=== PATIENT | female | born 1990 | race Caucasian/White ===

== ENCOUNTER 2020-03-24 11:27 | Inpatient (IN) | payer BC, SELFPAY ==
[2020-03-24] VITALS (41 sets, daily range): BP systolic 104–157; BP diastolic 47–96; PULSE 66–120; RESP 18–20; TEMP 36.3–37.3; O2SAT 100; BMI 24.5
[2020-03-24 12:17] LABS: Basophils Absolute Auto 0.1 K/mm3 (0.0-0.1); Basophils Percent Auto 0.4 % (0.2-1.2); Eosinophils Absolute Auto 0.2 K/mm3 (0-0.3); Eosinophils Percent Auto 1.3 % (0-4.4); Hematocrit 29.7 % (37.0-47.0); Hemoglobin 10.1 g/dL (12.0-15.0); Immature Granulocyte Absolute 0.24 K/mm3 (0.00-0.031); Immature Granulocyte Percent A 1.8 % (0-0.5); Lymphocytes Absolute Auto 2.21 K/mm3 (0.9-3.2); Lymphocytes Percent Auto 16.5 % (18.3-44.2); Mean Corpuscular Hemoglobin 30.3 pg (26-34); Mean Corpuscular Volume 89.2 fl (80-100); Mean Platelet Volume 11.1 fl (7.4-10.4); Monocytes Absolute Auto 0.7 K/mm3 (0.1-0.6); Monocytes Percent Auto 5.2 % (2.6-8.5); Neutrophils Percent Auto 74.8 % (45.5-73.1); Platelet Count Result 318 k/mm3 (150-375); Red Blood Count 3.33 M/mm3 (4.2-5.4); Red Cell Distribution Width 13.3 % (11.5-14.5); White Blood Count 13.4 K/mm3 (4.5-10.0)
[2020-03-24] MEDS: LACTATED RINGERS 1,000 ML 125 ML IV CONT (12:22)
--- NOTE | 2020-03-24 12:52 | LDADM ---
This patient, Naomy Ramirez, was admitted to Labor/Delivery/Recovery 104 on 03/24/20 at 11:27. Plans for labor, pain management and were discussed with patient. Patient/family oriented to hospital policies and general routines including ID bracelet, bed and alarms, visiting hours, pain management, procedures, bathroom and other care routines, personal items, smoking policy, room service/diet and guest tray routines, security routines, and visiting hours. Patient/Family are encouraged to report perceived risks to care and to ask questions if they do not understand what they are told or what they should do. See OBIX for further documentation.
[2020-03-24] MEDS: OXYTOCIN 30 UNITS/NS 500 ML 30 UNITS/500 ML BAG IV CONT (13:25)
--- NOTE | 2020-03-24 18:12 | PM.OBPNVD ---
OB - PN: Subj Subjective Date/time seen: 03/24/20 18:12 Very controlled with contractions. AROM forebag- clear. 7/100/0. FHT category 1. Anticipate . OB - PN: Obj Data Labs CBC & Chem 7: 03/24/20 12:12 Labs: Laboratory Results - last 24 hr 03/24/20 03/24/20 12:12 12:12 WBC 13.4 H RBC 3.33 L Hgb 10.1 L Hct 29.7 L MCV 89.2 MCH 30.3 MCHC 34.0 RDW 13.3 Plt Count 318 MPV 11.1 H Immature Gran % (Auto) 1.8 H Neut % (Auto) 74.8 H Lymph % (Auto) 16.5 L [place] % (Auto) 5.2 Eos % (Auto) 1.3 Baso % (Auto) 0.4 Lymph # (Auto) 2.21 [place] # (Auto) 0.7 H Eos # (Auto) 0.2 Baso # (Auto) 0.1 Abs Immat Gran (auto) 0.24 H Absolute Neuts (auto) 10.0 H Absolute Nucleated RBC 0.0 Nucleated RBC % 0.0 Blood Type O Positive Antibody Screen Negative OB - PN A/P Time Spent With Patient Time: Total time spent is greater than 50% in coordination of care (as documented) at patient's floor/unit and/or counseling patient:
--- NOTE | 2020-03-24 19:33 | P.PCNOB_ITS ---
OB - Delivery Note Procedure Delivery date: 03/24/20 Procedure: Intrapartal events: None Induction method: per pitocin protocol Delivery monitor: external FHT and external uterine Route of delivery: Episiotomy description: None Laceration Description: Perineal - 2nd Degree Delivery repair: vicryl Specimen: No Quantitative Blood Loss: 400 Anesthesia type: None Disposition: floor Narrative: With adequate expulsive efforts by the mother, the baby's head was delivered OA. The baby's anterior shoulder was delivered under the pubic symphysis without difficulty. The posterior shoulder and the rest of the baby delivered without difficulty. The infant was placed on the mothers chest and suctioned and stimulated. The cord was clamped and cut after 30 seconds. Moth er and baby both stable. [place] Baby Date of : 03/24/20 Time of : 19:15 Weeks of gestation at delivery: 37 Infant gender: Female Weight (pounds): 6 Weight (ounces): 9 presentation: vertex Placenta delivery description: Spontaneous cord vessel description: 3 Vessels, Clamped/Cut and Delayed Cord Clamping score one minute: 8 score five minutes: 9
[2020-03-24] MEDS: OXYTOCIN 30 UNITS/NS 500 ML 30 UNITS/500 ML BAG 125 UNITS IV CONT (19:59)
[2020-03-24] MEDS: IBUPROFEN 600 MG TABLET PO (20:29)
[2020-03-24] MEDS: WITCH HAZEL 40 PADS 1 PAD TOPICAL (20:30)
[2020-03-24] MEDS: BENZOCAINE 20% AER SPR (*SP) 56 GM CAN 1 SPRAY TOPICAL (20:30)
--- NOTE | 2020-03-24 21:38 | OBPPTRN ---
Patient transferred to post room #290 via wheelchair. Support person present. Oriented to unit, room, information board, rooming in, admission packet and security measures. Patient verbalizes understanding.
[2020-03-25 05:41] LABS: Hematocrit 26.9 % (37.0-47.0); Hemoglobin 9.1 g/dL (12.0-15.0)
[2020-03-25] MEDS: IBUPROFEN 600 MG TABLET PO ×2 (07:30→17:36)
[2020-03-25] MEDS: MULTIVIT/MIN/PREN/FOL AC/IRON TABLET 1 TAB PO (07:30)
[2020-03-25] MEDS: DOCUSATE SODIUM 100 MG CAPSULE PO ×2 (07:30→17:36)
[2020-03-25] MEDS: POLYSACCHARIDE IRON COMPLEX 150 MG CAPSULE PO ×2 (07:30→17:37)
--- NOTE | 2020-03-25 07:39 | P.PNOB_ITS ---
OB - PN: Subj Subjective Date/time seen: 03/25/20 07:39 Patient comments: no complaints baby status: doing well and nursing well [place] feeding status: exclusively breast feeding Narrative: Doing great! Would like DC tonight. OB - PN: Obj Data Labs CBC & Chem 7: 03/25/20 05:06 Labs: Laboratory Results - last 24 hr 03/24/20 03/24/20 03/25/20 12:12 12:12 05:06 WBC 13.4 H RBC 3.33 L Hgb 10.1 L 9.1 L Hct 29.7 L 26.9 L MCV 89.2 MCH 30.3 MCHC 34.0 RDW 13.3 Plt Count 318 MPV 11.1 H Immature Gran % (Auto) 1.8 H Neut % (Auto) 74.8 H Lymph % (Auto) 16.5 L [place] % (Auto) 5.2 Eos % (Auto) 1.3 Baso % (Auto) 0.4 Lymph # (Auto) 2.21 [place] # (Auto) 0.7 H Eos # (Auto) 0.2 Baso # (Auto) 0.1 Abs Immat Gran (auto) 0.24 H Absolute Neuts (auto) 10.0 H Absolute Nucleated RBC 0.0 Nucleated RBC % 0.0 Blood Type O Positive Antibody Screen Negative OB - PN A/P Plan day: 1 Plan: routine care Comments: Anemic- asymptomatic- continue iron. Routine pp care, home tonight if baby cleared. Time Spent With Patient Time: Total time spent is greater than 50% in coordination of care (as documented) at patient's floor/unit and/or counseling patient: Time with patient: less than 15 minutes Exam Narrative: Exam Narrative: NAD abdomen soft, nontender, fundus firm below the umbilicus Extremities nontender, 1+ edema
--- NOTE | 2020-03-25 07:53 | PM.OBDSVD ---
DS: Admitting Diagnosis Admitting Diagnosis Admitting Diagnosis: Leaking DS: Discharge Diagnosis Discharge Diagnosis (1) Term delivered: Code(s): O80 - Encounter for full-term uncomplicated delivery Status: Acute OB - DS: Summary OB Procedures : None OB Procedures Intrapartum: Spontaneous Vag Delivery OB Procedures: : None Peripartum Data Infant Delivery Method: Natural Vaginal Laceration Description: Perineal - 2nd Degree complications: none Status at Discharge Functional status at discharge: independent ambulation Time Spent with Patient Time attestation: Total time spent providing and/or coordinating discharge services: Time spent: Less than 30 minutes Exam Narrative: Exam Narrative: NAD abdomen soft, appropriately tender Ext non tender, 1+ edema DS: Data Data Completed and Pending Labs on day of discharge: Labs from last 24 hours 03/25/20 03/24/20 03/24/20 05:06 12:12 12:12 WBC RBC Hgb 9.1 L Hct 26.9 L MCV MCH MCHC RDW Plt Count MPV Immature Gran % (Auto) Neut % (Auto) Lymph % (Auto) [place] % (Auto) Eos % (Auto) Baso % (Auto) Lymph # (Auto) [place] # (Auto) Eos # (Auto) Baso # (Auto) Abs Immat Gran (auto) Absolute Neuts (auto) Absolute Nucleated RBC Nucleated RBC % RPR Pending Blood Type O Positive Antibody Screen Negative 03/24/20 12:12 WBC 13.4 H RBC 3.33 L Hgb 10.1 L Hct 29.7 L MCV 89.2 MCH 30.3 MCHC 34.0 RDW 13.3 Plt Count 318 MPV 11.1 H Immature Gran % (Auto) 1.8 H Neut % (Auto) 74.8 H Lymph % (Auto) 16.5 L [place] % (Auto) 5.2 Eos % (Auto) 1.3 Baso % (Auto) 0.4 Lymph # (Auto) 2.21 [place] # (Auto) 0.7 H Eos # (Auto) 0.2 Baso # (Auto) 0.1 Abs Immat Gran (auto) 0.24 H Absolute Neuts (auto) 10.0 H Absolute Nucleated RBC 0.0 Nucleated RBC % 0.0 RPR Blood Type Antibody Screen Discharge Plan Discharge Attending physician on discharge: Treasure Shah Discharging Clinician: Treasure Shah Anticipated Discharge Date/Time: 03/25/20 19:30 Patient Disposition: Home, Self-Care Activity: pelvic rest Diet: as tolerated Discharge Instructions: FU 4 weeks Patient Instructions: Antibiotic Form Stand Alone Forms: General Discharge Information Follow-up/Referrals: Treasure Shah MD [Physician] - (4 weeks) Discharge Medications: New ferrous sulfate 325 mg (65 mg iron) tablet 325 mg PO DAILY Qty: 30 RF: 2 Continued Classic 28 mg iron- 800 mcg Tablet 1 tablet PO DAILY RF: 0 Date of admission: 03/24/20 11:27 Primary Care Provider: PHYSICIAN,[employer] Admitting Provider: Sumeet Guy Attending physician on admission: Sumeet Guy Condition: Stable
[2020-03-25 08:00] VITALS: BP 100/47; BP 100/70; PULSE 76; RESP 18; TEMP 37.1; O2SAT 100
--- NOTE | 2020-03-25 10:25 | PC.NURSE ---
Consulted with patient, mother declines request to have session assessed. Reviewed infant feeding cues, frequencies, duration of feedings, feeding elimination flow sheet, and signs of adequate intake. Instructed mother to call out for RN assistance if she is unable to latch for feeding or she has discomfort with nursing. Instructed feeding should be initiated three hours from start of last feeding or if feeding cues are noted before. Mother voiced understanding of information shared.
--- NOTE | 2020-03-25 10:32 | PC.NURSE ---
Mother verbalizes she is able to independently latch with appropriate positioning/alignment. She denies any nipple discomfort, is feeding as required and waking to feed if needed. Infant has had 4 feedings effective feedings at this time, and is currently meeting outcomes for weight, output, jaundice and feeding frequencies. Mother states she feels confident to continue effective at home. Reviewed transition to breast milk, signs of adequate intake, and engorgement/relief. Instructed to call ICP if intake/output less than required. Reviewed community resources on the [facility] website and in the Mom/Baby guide. Information on outpatient services provided. Mother has no further questions at this time.
[2020-03-25 13:31] LABS: Rapid Plasma Reagin Non-Reactive (NonReactive)
[2020-03-25] MEDS: BENZOCAINE 20% AER SPR (*SP) 56 GM CAN 1 SPRAY TOPICAL (17:36)
[2020-03-25] MEDS: WITCH HAZEL 40 PADS 1 PAD TOPICAL (17:36)
[2020-03-27 10:54] VITALS: BP 121/57; PULSE 88; RESP 16; TEMP 36.6; O2SAT 99
== END 2020-03-25 20:53 | disposition home or self-care (01) | DRG 807 ==
LOC: ANHLDR 12:12 → ANHOB2 03-25 07:53 → ANHLDR 03-28 08:03 → ANHOB2 03-28 08:03
PROVIDERS: Admitting Provider Obstetrics & Gynecology; Visit Provider Obstetrics & Gynecology
DX: O70.1 Second degree perineal laceration during delivery (principal); Z37.0 Single live birth; Z3A.37 37 weeks gestation of pregnancy; Z23 Encounter for immunization
CPT/HCPCS: 36415; 85014; 85018; 85025; 86592; 86850; 86900; 86901; 90471; 90653; A9270; G0008; J2590; J7120

== ENCOUNTER 2020-09-21 14:42 | Emergency (ER) | payer BC, SELFPAY ==
[2020-09-21 14:53] VITALS: BP 142/69; PULSE 88; RESP 16; TEMP 36.7; O2SAT 99
--- NOTE | 2020-09-21 15:02 | ED.SKABFB ---
HPI - Skin/Abscess/Foreign Bdy General Chief complaint: Skin/Abscess/Foreign Body Stated complaint: rash Time Seen by Provider: 09/21/20 15:03 Source: patient and RN notes reviewed Mode of arrival: ambulatory History of Present Illness HPI narrative: 30-year-old female presents to the [facility] with complaints of rash to her bilateral lower legs. States it has been there for approximately 2 months. Has not seen a primary care or any other provider for her symptoms. States they do not itch or painful. States that she just wants to be treated. No signs of infection. They are red, mildly raised plaque, dry Related Data Allergies Allergy/AdvReac Type Severity Reaction Status Date / Time No Known Allergies Allergy Verified 03/09/20 14:07 Review of Systems Review of Systems: All systems reviewed & are unremarkable except as noted in HPI and below Constitutional: Constitutional: Reports no additional constitutional complaints, Denies chills, Denies fatigue, Denies fever(s) and Denies weakness Eyes: Eyes: Reports no additional eye complaints ENT: Reports system reviewed and no additional complaints, except as documented Cardiovascular: Cardiovascular: Reports no additional cardiovascular complaints Respiratory: Respiratory: Reports no additional respiratory complaints Integumentary/Breasts: Skin/Breast: Reports as per HPI and Reports rash PMFSH Social History Social History Years smoked: 7 Smoking status: Current every day smoker Tobacco type: cigarettes Substance use: never Spiritual care concerns: No Comments At the time of my signature, I reviewed and agree with the nursing past medical, surgical, social, and family history. There is no relevant family history pertinent to the patient complaint. Exam Const: General: healthy appearing, no acute distress and alert Nutritional Appearance: well nourished Orientation/consciousness: patient oriented x3 Limitations: no limitations HENMT: Head: normal to inspection Neck: Neck: normal visual inspection, no lymphadenopathy and no meningeal signs Chest: Chest palpation & inspection: normal inspection of the chest Resp: Effort & Inspection: normal respiratory effort and no use of accessory muscles Auscultation: clear to auscultation bilaterally, no crackles, no rales, no rhonchi and no wheezes Cardio: Rate: regular rate Rhythm: regular rhythm Skin: General skin exam: dry skin and no ecchymosis Lesions: lesion noted (Bilateral lower legs) Rashes: rashes noted (Bilateral lower leg, plaque) Hair: normal Neuro: General: patient oriented x3, moves all extremities and no meningeal signs Speech: normal speech Gait exam (Neuro): Normal gait present Extrem: General: normal to inspection and no pedal edema Psych: Appearance: grossly normal and well kempt Mental Status: mental status grossly normal Affect: normal affect Attitude: cooperative Thought content: Yes Normal thought content present Course Course Emergency Course: Discharge instructions reviewed with patient, as well as provided in writing per nursing staff. The instructions also include specific and strict return/GO TO THE ER as well as f/u information. All questions have been answered, and the patient deny any further questions with discharge and discharge plan. Vital Signs Vital signs: Vital Signs Temperature 98.0 F 09/21/20 14:53 Pulse Rate 88 09/21/20 14:53 Respiratory Rate 16 09/21/20 14:53 Blood Pressure 142/69 H 09/21/20 14:53 Pulse Oximetry 99 09/21/20 14:53 Temperature 98.0 F 09/21/20 14:53 Pulse Rate 88 09/21/20 14:53 Respiratory Rate 16 09/21/20 14:53 Blood Pressure 142/69 H 09/21/20 14:53 Pulse Oximetry 99 09/21/20 14:53 Reviewed MDM - Skin/Abscess/Foreign Bdy Differential Diagnosis Differential diagnosis: Likely viral exanthem, dermatophytosis, urticaria, allergic reaction to drug, cellulitis,
== END 2020-09-21 15:18 | disposition home or self-care (01) ==
PROVIDERS: Emergency Provider Nurse Practitioner
DX: L40.9 Psoriasis, unspecified (principal); F17.210 Nicotine dependence, cigarettes, uncomplicated
CPT/HCPCS: 99213; G0463

== ENCOUNTER 2022-04-20 17:14 | Emergency (ER) | payer OTHER, SELFPAY ==
[2022-04-20 17:28] VITALS: BP 142/75; PULSE 113; RESP 16; TEMP 37.5; O2SAT 99
--- NOTE | 2022-04-20 17:44 | ED.URI ---
HPI - URI/Sore Throat General Chief Complaint: Upper Respiratory Infection Stated Complaint: Sore Throat Time Seen by Provider: 04/20/22 17:44 Source: patient, RN notes reviewed and old records reviewed Mode of arrival: ambulatory Limitations: no limitations History of Present Illness HPI Narrative: 31-year-old female presents to the [facility] with complaints of a sore throat for 2 days. Has been using Chloraseptic spray. Reports pain with swelling. MD elicited complaint: sore throat Related Data Allergies Allergy/AdvReac Type Severity Reaction Status Date / Time No Known Allergies Allergy Verified 04/20/22 17:22 Review of Systems Review of Systems: All systems reviewed & are unremarkable except as noted in HPI and below Constitutional: Constitutional: Reports no additional constitutional complaints Eyes: Eyes: Reports no additional eye complaints ENT: Reports as per HPI and Reports sore throat Cardiovascular: Cardiovascular: Reports no additional cardiovascular complaints, Denies chest pain and Denies dyspnea Respiratory: Respiratory: Reports no additional respiratory complaints, Denies chest congestion, Denies cough and Denies dyspnea Gastrointestinal: Gastrointestinal: Reports no additional gastrointestinal complaints, Denies abdominal pain, Denies nausea and Denies vomiting Musculoskeletal: Musculoskeletal: Reports no additional musculoskeletal complaints Integumentary/Breasts: Skin/Breast: Reports system reviewed and no additional complaints, except as docu Neurologic: Reports system reviewed and no additional complaints, except as documented Psychiatric: Psychiatric: Reports no additional psychiatric complaints Allergic/Immunologic: Allergic/Immunologic: Reports no additional allergic/immunologic complaints PMFSH Social History Social History Years smoked: 7 Smoking status: Current every day smoker Tobacco type: cigarettes Substance use: never Spiritual care concerns: No Comments At the time of my signature, I reviewed and agree with the nursing past medical, surgical, social, and family history. There is no relevant family history pertinent to the patient complaint. Exam Const: General: cooperative, healthy appearing, comfortable, no acute distress, well developed, alert and well nourished Nutritional Appearance: well nourished Orientation/consciousness: patient oriented x3 Limitations: no limitations HENMT: Head: normal to inspection Ears: hearing grossly normal bilaterally and external ears normal Face/Nose/Sinus: Normal external nose present, Normal nares present, Normal nasal mucous membranes and turbinates present and normal facial exam Face and sinus: normal facial exam Mouth: Yes Normal oral and palatal mucosa present, Yes lip normal and Yes moist mucous membranes Throat: uvula midline, abnormal tonsil bilateral erythema and hypertrophy 3+; no exudates, posterior oropharynx abnormal erythema and uvular edema Eyes: General: appearance normal, both eyes and all related structures Alignment and Position: alignment normal Periorbital: periorbital findings normal Conjunctivae: conjunctivae normal Pupils: Equal, round and reactive pupils present EOM: EOMs intact bilaterally Neck: Neck: normal visual inspection, full ROM, no meningeal signs and lymphadenopathy (Submandibular bilateral) Chest: Chest palpation & inspection: normal inspection of the chest Resp: Effort & Inspection: normal respiratory effort and able to speak in complete sentences Auscultation: clear to auscultation bilaterally, no crackles, no rales, no rhonchi and no wheezes Cardio: Rate: regular rate Rhythm: regular rhythm Back/Spine/Pelvis: Cervical Spine: cervical ROM normal Thoracic/Lumbar Spine: No thoracic spinal tenderness Skin: General skin exam: normal color and no rashes or lesions noted Lesions: no lesions Rashes: no rashes Wounds: no wounds Joana
== END 2022-04-20 18:06 | disposition home or self-care (01) ==
PROVIDERS: Emergency Provider Nurse Practitioner
DX: J02.0 Streptococcal pharyngitis (principal); F17.210 Nicotine dependence, cigarettes, uncomplicated
CPT/HCPCS: 87880; 99213; G0463